=== PATIENT | female | born 1980 | race Caucasian/White ===

== ENCOUNTER 2020-01-04 07:50 | Day surgery (SDC) | payer BC ==
[2020-01-04] MEDS ORDERED: Propofol 200 MG/20 ML SDV IV ONE (07:51)
[2020-01-04] MEDS ORDERED: Lidocaine 2% 5 ML SDV INJECT ONE (07:51)
[2020-01-04] MEDS ORDERED: Ondansetron 4 MG/2 ML SDV IVPUSH ONE (07:51)
[2020-01-04] MEDS ORDERED: Lactated Ringers 1,000 ML IV SCH (08:00)
[2020-01-04] MEDS ORDERED: Sodium Chloride 0.9% 10 ML Syringe FLUSH PRN (08:00)
--- NOTE | 2020-01-04 09:53 | PCM.OPNOTE ---
- General Post-Op/Procedure Note Date of Surgery/Procedure: 01/04/20 Operative Procedure(s): egd with bx cold forcep Findings: gastritis. intact Kush Pre Op Diagnosis: gerd Post-Op Diagnosis: irregular z line. gastritis. intact Kush Anesthesia Technique: MAC Primary Surgeon: Andre Rae Anesthesia Provider: Flako Johnson Pathology: stomach distal esophagus Complications: None Condition: Good Free Text/Narrative:: see dictation
--- NOTE | 2020-01-04 11:44 | OR ---
DATE OF OPERATION: 01/04/2020 SURGEON: Andre Rae MD PROCEDURE PERFORMED: Esophagogastroduodenoscopy with cold forceps biopsy. PREOPERATIVE DIAGNOSIS: Esophagitis. POSTOPERATIVE DIAGNOSES: Gastritis, irregular Z-line. INDICATIONS FOR PROCEDURE: This is a 39-year-old white female, status post Kush fundoplication several years ago in [facility], recently has noted a return of reflux like symptoms, and she was offered and accepted an esophagogastroduodenoscopy as part of a workup to determine its cause. DESCRIPTION OF OPERATION: After an excellent IV sedation was administered, the bite block was inserted. Flexible endoscope was passed without difficulty down the patient's esophagus into her stomach. Stomach was insufflated. Scope was passed through the pylorus to the second portion of duodenum. Following findings were noted. Duodenum was unremarkable. Stomach demonstrated some mild gastritis. Photos were taken on retroflexion of the scope. It does appear that the Kush is intact. GE junction measured approximately 35 cm. The distal esophagus itself above the wrap did not demonstrate any evidence of esophagitis. She did have several tongues of what appears to be gastric mucosa, possible intestinal metaplasia, and biopsies were taken of these areas to determine if she does have this condition. The remainder of the esophageal exam was unremarkable. The stomach was deflated. The scope was removed. The patient tolerated the procedure well and was taken to recovery. Results will be sent to the patient by letter. /[id number] /MODL
== END 2020-01-04 10:44 | disposition home or self-care (01) ==
LOC: FB.SDS 07:50
PROVIDERS: ATTEND Surgery
DX: K21.0 Gastro-esophageal reflux disease with esophagitis (principal); K29.70 Gastritis, unspecified, without bleeding; E66.9 Obesity, unspecified; Z68.34 Body mass index [BMI] 34.0-34.9, adult; Z79.82 Long term (current) use of aspirin; Z88.0 Allergy status to penicillin; Z98.890 Other specified postprocedural states
CPT/HCPCS: 88305; 88313; 88342; J2001; J2405; J2704; J7120

== ENCOUNTER 2022-05-23 10:55 | Emergency (ER) | payer BC ==
[2022-05-23] MEDS ORDERED: Lidocaine 2% 5 ML SDV INJECT ONE (11:07)
[2022-05-23] MEDS ORDERED: Lidocaine 2% 20 ML MDV INJECT ONE (11:13)
[2022-05-23] MEDS ORDERED: Bacitracin Oint 1 GM U/D Packet TOP ONE (12:03)
[2022-05-23] MEDS ORDERED: Acetaminophen/HYDROcodone 325-5 MG Tab PO ONE (12:04)
== END 2022-05-23 12:43 | disposition home or self-care (01) ==
LOC: FB.ED 10:55
DX: S91.202A Unspecified open wound of left great toe with damage to nail, initial encounter (principal); E66.9 Obesity, unspecified; Z68.34 Body mass index [BMI] 34.0-34.9, adult; Z88.0 Allergy status to penicillin; X58.XXXA Exposure to other specified factors, initial encounter
CPT/HCPCS: 99283; A9270-GY